=== PATIENT | female | born 1965 | race Caucasian/White ===

== ENCOUNTER 2016-12-30 13:08 | Emergency (ER) | payer OTHER ==
[~2016-12-30] VITALS: Ht 165.1 cm; Wt 78.9 kg
[2016-12-30] MEDS ORDERED: ESTRADIOL NORETH PO (13:21)
[2016-12-30] MEDS ORDERED: TETRACAINE HCL 0.5% OPHT DROP 2 ML BOTTLE OP ONE (13:45)
[2016-12-30] MEDS ORDERED: HYDROCODONE/APAP 5-325MG TABLET PO ONE (13:45)
[2016-12-30] MEDS ORDERED: FLUORESCEIN SODIUM 1 MG STRIP OP ONE (13:45)
[2016-12-30] MEDS ORDERED: HYDROCODONE/APAP 5-325MG TABLET ONE (13:54)
[2016-12-30] MEDS ORDERED: TETRACAINE HCL 0.5% OPHT DROP 2 ML BOTTLE ONE (14:05)
[2016-12-30] MEDS ORDERED: FLUORESCEIN SODIUM 1 MG STRIP ONE (14:05)
--- NOTE | 2016-12-30 14:18 | NUR ---
Patient discharged to home in stable conditon. Written and verbal after care instructions given. Patient verbalizes understanding of instructions.pt walks in steady gait. pt with so. pt not driving. pt denies pain or nausea at this time
== END 2016-12-30 14:20 | disposition home or self-care (01) ==
LOC: ER 13:08
DX: B02.9 Zoster without complications (principal); K58.9 Irritable bowel syndrome, unspecified
CPT/HCPCS: 99283; A4663